=== PATIENT | female | born 1985 | race African-American/Black ===

== ENCOUNTER 2017-02-28 22:14 | Emergency (ER) | payer SELFPAY ==
[~2017-02-28 22:14] MED LIST: PT DENIES HOME MEDS
== END 2017-02-28 22:15 | disposition home or self-care (01) ==
LOC: ER 22:14
DX: S39.012A Strain of muscle, fascia and tendon of lower back, initial encounter (principal); M25.531 Pain in right wrist; S40.012A Contusion of left shoulder, initial encounter; S70.12XA Contusion of left thigh, initial encounter; Z88.8 Allergy status to other drugs, medicaments and biological substances; Z91.038 Other insect allergy status; V89.2XXA Person injured in unspecified motor-vehicle accident, traffic, initial encounter
CPT/HCPCS: 72100; 73030-RT; 73110-RT; 96372; 99284; A9270-GY; J2360